=== PATIENT | female | born 1980 | race African-American/Black ===

== ENCOUNTER 2021-04-22 21:35 | Emergency (ER) | payer SELFPAY ==
[2021-04-22] MEDS ORDERED: Ondansetron ODT 4 MG TAB ONE (22:14)
[2021-04-22] MEDS ORDERED: Acetaminophen 500 MG TAB ONE (22:15)
[2021-04-22 22:40] LABS: Bilirubin Neg (Negative); Blood, Urine 25 (Negative); Clarity Clear (Clear); Glucose, Urine (Dipstick) Normal (Negative); Ketone, Urine Negative (Negative); Leukocyte 25 (Negative); Nitrite Negative (Negative); Protein, Urine (Dipstick) Negative (Neg-Trace); Urobilinogen Normal mg/dL (Less than 2)
[2021-04-22 22:48] LABS: Bacteria/HPF 1+ HPF (None Seen); Squamous Epithelial 0-3 HPF (0-3); WBC/HPF 0-3 HPF (0-3)
[2021-04-23 19:32] LABS: Chlamydia by PCR Not Detected (NotDetected); GC by PCR DETECTED (NotDetected)
== END 2021-04-22 22:54 | disposition home or self-care (01) ==
LOC: CSHERS 21:35
DX: H66.91 Otitis media, unspecified, right ear (principal); I10 Essential (primary) hypertension; Z79.899 Other long term (current) drug therapy
CPT/HCPCS: 81003; 81015; 87480; 87491; 87510; 87591; 87660; 87804; 99284; Q0162

== ENCOUNTER 2022-02-15 18:17 | Emergency (ER) | payer SELFPAY ==
[2022-02-15] MEDS ORDERED: Acetaminophen 500 MG TAB ONE (19:16)
[2022-02-15] MEDS ORDERED: Dexamethasone 10 MG/ML VIAL ONE (19:39)
[2022-02-15] MEDS ORDERED: diphenhydrAMINE 50 MG/ML VIAL ONE (19:39)
[2022-02-15] MEDS ORDERED: Metoclopramide HCl 10 MG/2 ML VIAL ONE (19:39)
== END 2022-02-15 20:40 | disposition home or self-care (01) ==
LOC: CSHERS 18:17
DX: R51.9 Headache, unspecified (principal); I10 Essential (primary) hypertension; Z79.899 Other long term (current) drug therapy
CPT/HCPCS: 96365; 96375; J1100; J1200; J2765

== ENCOUNTER 2022-03-23 17:59 | Emergency (ER) | payer BC ==
[2022-03-23] MEDS ORDERED: Amoxicillin/Potassium Clav 875 MG TAB ONE (20:18)
[2022-03-23] MEDS ORDERED: Fioricet 325/50/40 mg Tablet ONE (20:22)
[2022-03-23] MEDS ORDERED: guaiFENesin/DM ER PO SCH (20:30)
== END 2022-03-23 20:30 | disposition home or self-care (01) ==
LOC: CSHERS 17:59
DX: J01.90 Acute sinusitis, unspecified (principal); K04.6 Periapical abscess with sinus; I10 Essential (primary) hypertension
CPT/HCPCS: 99283

== ENCOUNTER 2022-04-17 11:27 | Emergency (ER) | payer BC ==
[2022-04-17 12:49] LABS: Bilirubin Neg (Negative); Blood, Urine 250 (Negative); Clarity Cloudy (Clear); Glucose, Urine (Dipstick) Normal (Negative); Ketone, Urine Negative (Negative); Leukocyte 500 (Negative); Nitrite Negative (Negative); Protein, Urine (Dipstick) 100 mg/dl (Neg-Trace); Specific Gravity, Urine 1.025 (1.005-1.030); Urobilinogen Normal mg/dL (Less than 2)
[2022-04-17 12:51] LABS: Pregnancy Test - Urine (BHCG) Negative (Negative)
[2022-04-17 12:52] LABS: Pregu Control Background? CLEAR/WHITE (CLR/WHITE); Pregu Control Bar Appear? YES (CONTROL BAR); Specific Gravity 1.025 (1.002-1.036)
[2022-04-17 13:11] LABS: Bacteria/HPF Rare-Few HPF (None Seen); RBC/HPF 21-50 HPF (0-3); Squamous Epithelial 0-3 HPF (0-3); WBC/HPF Greater Than 50 HPF (0-3)
== END 2022-04-17 12:10 | disposition home or self-care (01) ==
LOC: CSHERS 11:27
DX: N30.00 Acute cystitis without hematuria (principal); I10 Essential (primary) hypertension
CPT/HCPCS: 81003; 81015; 81025; 87086; 99284

== ENCOUNTER 2022-05-05 17:13 | Emergency (ER) | payer BC ==
[2022-05-05] MEDS ORDERED: Acetaminophen 500 MG TAB ONE (18:17)
[2022-05-05] MEDS ORDERED: Ketorolac Tromethamine 30 MG/ML VIAL ONE (18:18)
[2022-05-05] MEDS ORDERED: Metoclopramide HCl 10 MG/2 ML VIAL ONE (18:18)
[2022-05-05] MEDS ORDERED: Magnesium 2 GM/50 ML BAG (IN WATER) ONE (18:18)
[2022-05-05] MEDS ORDERED: diphenhydrAMINE 50 MG/ML VIAL ONE (18:18)
== END 2022-05-05 19:46 | disposition home or self-care (01) ==
LOC: CSHERS 17:13
DX: R51.9 Headache, unspecified (principal); I10 Essential (primary) hypertension
CPT/HCPCS: 70450; 96365; 96375; J1200; J1885; J2765; J3475

== ENCOUNTER 2022-05-10 18:34 | Emergency (ER) | payer BC ==
[2022-05-10 20:27] LABS: #Eosinphils 0.1 10x3/uL (0.0-0.5); #Monocytes 0.5 10x3/uL (0.0-1.1); #Neutrophils 5.7 10x3/uL (1.5-8.4); %Basophils 0.2 % (0.0-2.0); %Eosinophils 1.1 % (0.0-6.0); %Lymphocytes 24.1 % (18.0-47.0); %Monocytes 6.3 % (0.0-10.0); %Neutrophils 67.9 % (40.0-75.0); Hemoglobin 13.5 g/dL (12.0-15.5); Mean Corpuscular Volume 87.8 fl (81.6-98.3); Mean Platelet Volume 10.7 fl (7.4-10.4); Platelet Count 272 10x3/uL (150-450); Red Blood Cell (RBC) Count 4.66 10x6/uL (3.90-5.03); White Blood Cell (WBC) Count 8.5 10x3/uL (3.5-10.5)
[2022-05-10 20:32] LABS: ALT (SGPT) 14 U/L (8-55); AST (SGOT) 15 U/L (5-34); Alkaline Phosphatase 63 U/L (40-110); Anion Gap 14 mmol/L (10-20); BUN (Urea Nitrogen) 10 mg/dL (7.0-18.7); Bilirubin, Total 0.3 mg/dL (0.2-1.2); Calc. Creatinine Clearance 0 mL/min (70-130); Calcium 9.6 mg/dL (7.8-10.44); Carbon Dioxide 26 mmol/L (22-29); Chloride 103 mmol/L (98-107); Estimated GFR 93; Globulin 2.7 g/dL (2.4-3.5); Glucose 138 mg/dL (70-105); Potassium 3.8 mmol/L (3.5-5.1); Protein, Total 6.7 g/dL (6.0-8.3); Sodium 139 mmol/L (136-145)
[2022-05-10] MEDS ORDERED: diphenhydrAMINE 50 MG/ML VIAL ONE (21:21)
[2022-05-10] MEDS ORDERED: Acetaminophen 500 MG TAB ONE (21:22)
[2022-05-10] MEDS ORDERED: Ketorolac Tromethamine 30 MG/ML VIAL ONE (21:22)
[2022-05-10] MEDS ORDERED: Metoclopramide HCl 10 MG/2 ML VIAL ONE (21:23)
[2022-05-10] MEDS ORDERED: Magnesium 2 GM/50 ML BAG (IN WATER) ONE (21:48)
== END 2022-05-10 22:43 | disposition home or self-care (01) ==
LOC: CSHERS 18:34
DX: G43.909 Migraine, unspecified, not intractable, without status migrainosus (principal); I10 Essential (primary) hypertension
CPT/HCPCS: 36415; 70450; 71045; 80053; 84484; 85025; 93005; 96365; 96366; 96367; 96375; J1200; J1885; J2765; J3475

== ENCOUNTER 2022-06-13 16:15 | Outpatient (CLI) | payer BC | END 2022-06-13 16:16 | disposition home or self-care (01) | LOC: CSHRAD 16:15 | PROVIDERS: ATTEND Family Medicine | DX: M25.511 Pain in right shoulder (principal); M25.512 Pain in left shoulder ==

== ENCOUNTER 2022-10-24 13:01 | Emergency (ER) | payer BC ==
[2022-10-24] MEDS ORDERED: Acetaminophen 500 MG TAB ONE (14:18)
[2022-10-24 14:27] LABS: Bilirubin Neg (Negative); Blood, Urine 250 (Negative); Clarity Clear (Clear); Glucose, Urine (Dipstick) Normal (Negative); Ketone, Urine Negative (Negative); Leukocyte 25 (Negative); Nitrite Negative (Negative); Protein, Urine (Dipstick) 30 mg/dl (Neg-Trace); Urobilinogen Normal mg/dL (Less than 2)
[2022-10-24 14:33] LABS: Pregnancy Test - Urine (BHCG) Negative (Negative); Pregu Control Background? CLEAR/WHITE (CLR/WHITE); Pregu Control Bar Appear? YES (CONTROL BAR)
[2022-10-24 14:45] LABS: SARS-CoV-2 NAA Rapid Test Not Detected (NotDetected)
[2022-10-24] MEDS ORDERED: Ketorolac Tromethamine 30 MG/ML VIAL ONE (15:01)
[2022-10-24] MEDS ORDERED: Metoclopramide HCl 10 MG/2 ML VIAL ONE (15:01)
[2022-10-24] MEDS ORDERED: diphenhydrAMINE 50 MG/ML VIAL ONE (15:01)
[2022-10-24 15:07] LABS: RBC/HPF 21-50 HPF (0-3)
[2022-10-24 15:08] LABS: Bacteria/HPF 1+ HPF (None Seen); CAUTI Indications for Culture Alt mental st,lethar; Mucous/LPF 1+ LPF (<2+); Squamous Epithelial 0-3 HPF (0-3)
[2022-10-24 15:09] LABS: Urine Culture Reflex No No
== END 2022-10-24 15:29 | disposition home or self-care (01) ==
LOC: CSHERS 13:01
DX: N39.0 Urinary tract infection, site not specified (principal); I10 Essential (primary) hypertension; G43.909 Migraine, unspecified, not intractable, without status migrainosus; Z20.822 Contact with and (suspected) exposure to COVID-19
CPT/HCPCS: 81001; 81025; 99284; J1200; J1885; J2765